=== PATIENT | male | born 1960 ===

== ENCOUNTER 2018-09-13 19:50 | Inpatient (IN) | payer MEDICAID ==
[~2018-09-13] VITALS: Ht 175.3 cm; Wt 71.4 kg
--- NOTE | ~2018-09-13 | HEMODYNAMI ---
PATIENT:KRISTOFER LANDON MEDICAL RECORD: [id number] : 60 LOCATION:[facility] [address] [facility]# [id number] ADMISSION DATE: 09/13/18 Generatedon:09/16/201815:55 Patient name: KRISTOFER LANDON Patient #: [id number] SSN: : 1960 Date of study: 09/16/2018 Page: Of Hemodynamic Procedure Report Patient Data Patient Demographics Procedure consent was obtained First Name: KRISTOFER Gender: Male Last Name: DIPESH : 1960 Patient #: [id number] Age: 58 year(s) Race: Unknown Additional ID: [id number] Contact details Address: [facility] [address] State: [place] City: [place] Zip code: [address] Past Medical History Allergies: No known allergies Admission Admission Data Admission Date: 09/13/2018 Admission Time: 20:33 Admit Source: Transfer Insurance Payor: Private acute care [facility] health insurance Room #: D.[address] [facility] #: [id number] Height (in.): 69 BSA: 1.86 (m2) Height (cm.): 175.26 BMI: 23.18 (kg/m2) Weight (lbs.): 157 Weight (kg.): 71.21 Lab Results Lab Result Date: 09/16/2018 Lab Result Time: 5:32 Biochemistry Name Units Result Min Max BUN mg/dl 15 --(--*-)-- 7 18 Creatinine mg/dl 0.5 -*(----)-- 0.6 1.3 CBC Name Units Result Min Max Hematocrit % 36.4 *-(----)-- 42 54 Hemoglobin g/dl 12.3 *-(----)-- 13.5 17.5 Procedure Procedure Types Cath Procedure Diagnostic Procedure [facility] PCI Procedure Coronary Stent Coronary Stent Initial Procedure Description Procedure Date Procedure Date: 09/16/2018 Procedure Start Time: 15:41 Procedure End Time: 15:54 Procedure Staff Name Function Harsha Johns MD Performing Physician Tyler Abbasi RT Monitor Oscar Castle RT Scrub Seng Haines RN Nurse Procedure Data Cath Procedure Fluoroscopy Diagnostic fluoroscopy Total fluoroscopy Time: 1.5 time: 1.5 min min Diagnostic fluoroscopy Total fluoroscopy dose: 102 dose: 102 mGy mGy Contrast Material Contrast Material Type Amount (ml) Isovue 300 37 Entry Location Entry Primary Successful Side Size Upsize Upsize Entry Closure Succes sful Closure Location (Fr) 1 (Fr) 2 (Fr) Remarks Device Remarks Femoral Left 6 Fr Exoseal artery Short Estimated blood loss: 10 ml Procedure Medications Medication Administration Route Dosage 0.9% NaCl I.V. 100 ml/hr Oxygen etCO2 Nasal cannula 2 l/min Heparin Flush Bag added to field 2 bags (1000units/500ml NS) Lidocaine 2% added to field 20 Versed I.V. 2 mg Fentanyl I.V. 100 mcg Heparin Bolus I.V. 4000 units Versed I.V. 2 mg Hemodynamics Rest BSA: 1.86 (m2) O2 Consumption: Estimated: 252.96 (ml/min) O2 Consumption indexed : Estimated:136 (ml/min/m) Pre Cath Intra NCS Post Cath Vital Signs Time Heart Resp SPO2 etCO2 NIBP (mmHg) Rhythm Pain Sedation Rate (ipm) (%) (mmHg) Status Level (bpm) 15:36:20 86 16 99 33.6 144/95(113) NSR 0 (11) 10(A) , No pain 15:40:30 82 14 98 36.6 124/88(99) NSR 0 (11) 10(A) , No pain 15:44:36 84 13 98 37.4 124/86(105) NSR 0 (11) 10(A) , No pain 15:48:44 83 12 98 37.4 121/81(94) NSR 0 (11) 10(A) , No pain 15:52:50 84 13 98 37.4 123/84(95) NSR 0 (11) 10(A) , No pain Medications Time Medication Route Dose Verified Delivered Reason Notes Effectiveness by by 15:34:46 0.9% NaCl I.V. 100 Seng Seng Per physician ml/hr Yancy Haines RN RN 15:34:55 Oxygen etCO2 2 Seng Seng for low 02 sats Nasal l/min Yancy Haines cannula RN RN 15:35:05 Heparin Flush added 2 Seng Seng used for Bag to bags Yancy Haines procedure (1000units/500ml field RN RN NS) 15:35:18 Lidocaine 2% added 20ml Seng Seng for local to vial Yancy Haines anesthetic field RN RN 15:41:55 Versed I.V. 2 mg Seng Seng for sedation Yancy Haines RN RN 15:42:03 Fentanyl I.V. 100 Seng Seng for sedation mcg Yancy Haines RN RN 15:42:16 Heparin Bolus I.V. 4000 Seng Seng for units Yancy Haines anticoagulation RN RN 15:42:42 Versed I.V. 2 mg Seng Seng for sedation Yancy Haines RN clerical specialist Log Time Note 15:10:11 Seng Haines RN sent for patient. Start room use. 15:16:42 Informed consent obtained and on chart 15:19:17 Insurance Payor : Private health insurance 15:19:44 Patient Weight : 157 lbs 15:19:48 Patient Height : 69 inches 15:20:21 Lab Result : BUN 15 mg/dl 15:20:21 Lab Result : Creatinine 0.5 mg/dl 15:20:21 Lab Result : Hematocrit 36.4 % 15:20:21 Lab Result : Hemoglobin 12.3 g/dl 15:20:51 PCI Cath Status : Elective 15:21:09 Procedure Status PCI. 15:21:17 Time tracking: Regular hours (M-F 7:00 - 5:00) 15:21:20 Plan of Care:Hemodynamics will remain stable., Cardiac rhythm will remain stable., Comfort level will be maintained., Respiratory function will remain adequate., Patient/ family verbilizes understanding of procedure., Procedure tolerated without complication., Recovers from procedure without complications.. 15:21:24 Patient received from Med II to CCL 1 Alert and oriented. Tansferred to table in Supine position. 15:21:29 Warm blankets applied, and jose hugger turned on for patient comfort. 15:21:30 Correct patient and procedure confirmed by team. 15:21:30 ECG and BP/O2 sat monitors applied to patient. 15:21:44 H&P Date Dictated: 09/15/2018 Within 30 days and on chart.. 15:21:46 Pre-procedure instructions explained to patient. 15:21:46 Pre-op teaching completed and patient verbalized understanding. 15:34:46 0.9% NaCl 100 ml/hr I.V. was administered by Sneg Haines RN; Per physician; 15:34:55 Oxygen 2 l/min etCO2 Nasal cannula was administered by Seng Haines RN; for low 02 sats; 15:35:05 Heparin Flush Bag (1000units/500ml NS) 2 bags added to field was administered by Seng Haines RN; used for procedure; 15:35:18 Lidocaine 2% 20ml vial added to field was administered by Seng Haines RN; for local anesthetic; 15:35:21 Vital chart was started 15:37:20 INFLATOR Merit BasixCompak (EH2007) opened to sterile field. 15:37:24 CHOICE PT Extra Support 182cm wire ([id number]) opened to sterile field. 15:37:27 SHEATH 6FR [place] (AAZ022) opened to sterile field. 15:37:31 EXOSEAL 6Fr (EX600) opened to sterile field. 15:37:42 Use device set CATH PACK 15:37:44 ACIST Syringe (27463) opened to sterile field. 15:37:44 ACIST Hand Control (63574) opened to sterile field. 15:37:47 ACIST Manifold (72207) opened to sterile field. 15:37:48 Medline Cath Pack ([id number]) opened to sterile field. 15:37:49 Bag Decanter (2002S) opened to sterile field. 15:37:49 EMERALD Guide Wire (502-205) opened to sterile field. 15:38:44 Patient allergic to No known allergies 15:39:03 ----Pre-sedation anethsthesia assessment.---- 15:39:06 Previous problem with sedation/anesthesia? No ? 15:39:15 Snore? Yes 15:39:16 Sleep apnea? No 15:39:18 Deviated septum? No 15:39:20 Opens mouth fully? Yes 15:39:22 Sticks out tongue? Yes 15:39:25 Airway obstruction? No ? 15:39:42 IV patent on arrival in right antecubital with 0.9% NaCl at [facility]. 15:39:44 Alarms reviewed by R. N. 15:39:45 Sharps counted by scrub and verified by R.N. 15:39:47 Physician arrived 15:39:47 --------ALL STOP TIME OUT------ 15:39:48 Final Timeout: patient, procedure, and site verified with staff and physician. All members of the team are in agreement. 15:39:52 Left groin site verified by team. 15:39:57 Fire Safety Assessment: A--An alcohol-based skin anteseptic being used preoperatively., C--Open oxygen or nitrous oxide is being used., D--An ESU, laser, or fiber-optic light is being used. 15:40:02 Physical assessment completed. ASA score P 2 - A patient with mild systemic disease as per Harsha Johns MD. 15:40:16 1) 90+ Normal kidney functon but urine findings or structural abnormalities or genetic trait point to kidney disease. 15:40:34 Maximum allowable contrast dose (3.7 X eGFR X 0.75)249 ml. 15:40:42 Sedation plan: IV Moderate Sedation Medication:Versed, Fentanyl 15:40:52 Procedure started. 15:40:52 Full Disclosure recording started 15:41:01 Local anesthetic to left femerol artery with Lidocaine 2% by Harsha oJhns MD.INITIAL ACCESS ONLY 15:41:11 A 6 Fr Short sheath was inserted into the Left Femoral artery 15:41:26 GUIDE 6FR AR 1.0 catheter (YS2TI15) opened to sterile field. 15:41:52 Pre PCI Site: [place] pRCA has 85% stenosis. 15:41:55 Versed 2 mg I.V. was administered by Seng Haines RN; for sedation; 15:41:58 6 Fr AR 1 guide catheter was inserted over the wire 15:42:03 Fentanyl 100 mcg I.V. was administered by Seng Haines RN; for sedation; 15:42:07 CHOICE wire advanced. 15:42:16 Heparin Bolus 4000 units I.V. was administered by Seng Haines RN; for anticoagulation; 15:42:42 Versed 2 mg I.V. was administered by Seng Haines RN; for sedation; 15:42:47 Place stent Inflation Number: 1 A COBRA RX 3.5 X 24 Stent was prepped and advanced across the Prox RCA 85. The stent was deployed at 13 ZAK for 0:10 (min:sec) 0. 15:43:21 Stent catheter was removed intact over wire. 15:43:22 Wire removed. 15:43:24 Guide catheter removed. 15:44:51 Sheath removed intact; hemostasis achieved with Exoseal to the Left Femoral artery. 15:44:54 Procedure ended.(Physican Out) 15:47:17 Fluoroscopy time 01.50 minutes. 15:47:22 Fluoroscopy dose: 102 mGy 15:47:22 Flurop Dose total: 102 15:47:27 Dose Area Product 4302 mGy/cm. 15:47:32 Contrast amount:Isovue 300 37ml. 15:47:36 Maximum allowable dose exceeded? No. 15:47:37 Sharps counted by scrub and verified by R.N. 15:53:23 Insertion/operative site no bleeding no hematoma. 15:53:33 Post-op/insertion site Left Femoral artery dressed using a 4 x 4 and Tegaderm. 15:53:44 Post left femerol artery:stable 15:53:53 Post-procedure physical assessment completed. ASA score P 2 - A patient with mild systemic disease as per Harsha Johns MD. 15:53:58 Post procedure rhythm: sinus rhythm 15:54:02 Estimated blood loss: 10 ml 15:54:04 Patient needs reinforcement of post procedure teaching. 15:54:06 Procedure and supply charges have been captured, reviewed, submitted and are correct. 15:54:07 Vital chart was stopped 15:54:08 See physician's report for complete and final results. 15:54:11 Report given to PCU. 15:54:15 Patient transfered to PCU with Bed. 15:54:17 Procedure ended. 15:54:17 Full Disclosure recording stopped 15:54:23 End room use (Document Last) Intervention Summary Intervention Notes Time ActionType Lesion and Equipment Action# Pressure Duration Attributes Used 15:42:47 Place stent Prox RCA COBRA RX 1 13 00:10 3.5 X 24 Stent Device Usage Item Name Manufacture Quantity Catalog Number Hospital Part Current Minimal Lot# / Charge Number Stock Stock Serial# Code INFLATOR Merit Merit 1 [id number] 738450 636863 132142 15 [employer] (BD2539) CHOICE PT [place] 1 [id number] 163125 216278 456299 5 Extra Support Scientific 182cm wire ([id number]) SHEATH 6FR Terumo 1 ZEN197 135192 821746 085209 40 [place] (NEL869) EXOSEAL 6Fr Cardinal 1 EX600 563936 599573 220046 10 (EX600) Health ACIST Syringe Acist 1 81837 768350 923299 456781 20 (42196) Medical Systems Inc ACIST Hand Acist 1 38671 340158 312789 766320 5 Control Medical (46269) Systems Inc ACIST Manifold Acist 1 51547 220445 301042 402820 5 (46094) Medical Systems Inc Medline Cath Medline 1 [id number] 062803 28518 039346 5 Pack ([id number]) Bag Decanter Microtek 1 2001S 524181 43046 626776 5 (2001S) Medical Inc. EMERALD Guide Cardinal 1 151-455 749396 597792 371348 5 Wire (131-725) Health GUIDE 6FR AR Medtronic 1 [id number] 519467 89868 037282 1 1.0 catheter (WP2RV86) COBRA RX 3.5 X Celonova 1 596-27-23067 411257 276163647 0272489 3 [id number] 24 stent Biosciences ([id number]) Signature Audit [place] Stage Time Signature Unsigned Intra-Procedure 09/16/2018 Tyler Abbasi 3:55:17 PM RT(R) (CV) Signatures Performing Physician : Signature : Harsha Johns MD Date : Time : Monitor : Tyler Abbasi RT Signature : Date : Time : Nurse : Seng Haines Signature : RN Date : Time : [place] [address] [place] [address]
--- NOTE | ~2018-09-13 | HEMODYNAMI ---
PATIENT:KRISTOFER LANDON MEDICAL RECORD: [id number] : 60 [address] [id number] ADMISSION DATE: 09/13/18 Generatedon:09/13/201820:42 Patient name: KRISOTFER LANDON Patient #: [id number] SSN: : 1960 Date of study: 09/13/2018 Page: Of Hemodynamic Procedure Report Patient Data Patient Demographics Procedure consent was obtained First Name: KRISTOFER Gender: Male Last Name: DIPESH : 1960 Patient #: [id number] Age: 58 year(s) Race: Unknown Additional ID: [id number] Contact details Address: [facility] [address] State: [place] City: [place] Zip code: [address] Admission Admission Data Admission Date: 09/13/2018 Admission Time: 20:33 Admit Source: Transfer acute care facility Room #: D.CV07 Procedure Procedure Types Cath Procedure Diagnostic Procedure [facility] w/Coronaries Sedation Charges Moderate Sedation up to 15 minutes PCI Procedure AMI/SVG/DELIVERY MGR PTCA or Stent AMI-BMS/KARLA Initial Procedure Description Procedure Date Procedure Date: 09/13/2018 Procedure Start Time: 20:20 Procedure End Time: 20:41 Procedure Staff Name Function Harsha Johns MD Performing Physician Caleb Fontanez RT Monitor Oscar Castle RT Scrub Seng Haines RN Nurse Procedure Data Cath Procedure Fluoroscopy Diagnostic fluoroscopy Total fluoroscopy Time: 2.5 time: 2.5 min min Diagnostic fluoroscopy Total fluoroscopy dose: 343 dose: 343 mGy mGy Contrast Material Contrast Material Type Amount (ml) Isovue 300 62 Entry Location Entry Primary Successful Side Size Upsize Upsize Entry Closure Succes sful Closure Location (Fr) 1 (Fr) 2 (Fr) Remarks Device Remarks Femoral Right 6 Fr Exoseal artery Short Estimated blood loss: 10 ml Diagnostic catheters Device Type Used For End Catheter Placement MULTIPACK JL 4.0 5Fr Procedure catheter MULTIPACK 3DRC 5Fr Procedure catheter MULTIPACK Pigtail 5 Fr Procedure catheter Procedure Complications No complications Procedure Medications Medication Administration Route Dosage 0.9% NaCl I.V. 100 ml/hr Oxygen etCO2 Nasal cannula 2 l/min Heparin Flush Bag added to field 2 bags (1000units/500ml NS) Lidocaine 2% added to field Versed I.V. 1 mg Fentanyl I.V. 50 mcg Heparin Bolus I.V. 5000 units Integrilin (Bolus I.V. 6.8 ml 2mg/ml) Integrilin (Bolus wasted 3.2 ml 2mg/ml) Versed I.V. 1 mg Fentanyl I.V. 50 mcg Hemodynamics Rest Heart Rate: 80 (bpm) Snapshots Pre Cath Intra NCS Post Cath Vital Signs Time Heart Resp SPO2 etCO2 NIBP (mmHg) Rhythm Pain Sedation Rate (ipm) (%) (mmHg) Status Level (bpm) 20:16:32 82 16 98 0 135/88(108) NSR 1 (11) 10(A) , Very mild 20:20:36 84 17 99 0 117/85(96) NSR 1 (11) 10(A) , Very mild 20:24:42 81 11 98 0 125/85(107) NSR 0 (11) 10(A) , No pain 20:28:52 78 14 97 0 116/79(98) NSR 0 (11) 10(A) , No pain 20:32:56 80 23 98 0 116/84(101) NSR 0 (11) 10(A) , No pain 20:37:01 79 15 98 0 116/77(98) NSR 0 (11) 10(A) , No pain Medications Time Medication Route Dose Verified Delivered Reason Notes Effectiveness by by 20:18:59 0.9% NaCl I.V. 100 Seng Seng Per physician ml/hr Yancy Haines RN RN 20:19:10 Oxygen etCO2 2 Seng Seng for low 02 sats Nasal l/min Yancy Haines cannula RN RN 20:19:19 Heparin Flush added 2 Seng Seng used for Bag to bags Yancy Haines procedure (1000units/500ml field FABRIZIO DINH NS) 20:19:32 Lidocaine 2% added Seng Seng for local to Yancy Haines anesthetic field FABRIZIO RN 20:20:01 Versed I.V. 1 mg Seng Seng for sedation Yancy Haines RN RN 20:20:12 Fentanyl I.V. 50 Seng Seng for sedation mcg Yancy Haines RN RN 20:25:28 Heparin Bolus I.V. 5000 Seng Seng for units Yancy Haines anticoagulation RN RN 20:25:45 Integrilin I.V. 6.8 Seng Seng for (Bolus 2mg/ml) ml Yancy Haines antiplatelet RN RN therapy 20:25:56 Integrilin wasted 3.2 Seng Seng to sharp's (Bolus 2mg/ml) ml Yancy Haines RN RN 20:26:51 Versed I.V. 1 mg Seng Seng for sedation Yancy Haines RN RN 20:26:58 Fentanyl I.V. 50 Seng Seng for sedation mcg Yancy Haines RN plastic battery assembler Log Time Note 19:57:21 Informed consent obtained and on chart 19:57:27 Admit Source: Transfer acute care facility 19:57:45 Procedure Status Emergent Heart Cath (AMI). 19:57:48 Seng Haines RN sent for patient. Start room use. 19:57:50 Time tracking: Call back (After hours or weekends) 19:57:54 Plan of Care:Hemodynamics will remain stable., Cardiac rhythm will remain stable., Comfort level will be maintained., Respiratory function will remain adequate., Patient/ family verbilizes understanding of procedure., Procedure tolerated without complication., Recovers from procedure without complications.. 20:05:11 Patient arrives emergently. 20:05:22 Patient received from ED to CCL 1 Alert and oriented. Tansferred to table in Supine position. 20:05:23 Warm blankets applied, and jose hugger turned on for patient comfort. 20:05:23 Correct patient and procedure confirmed by team. 20:05:24 ECG and BP/O2 sat monitors applied to patient. 20:15:30 Vital chart was started 20:15:42 Baseline sample Acquired. 20:15:46 Rhythm: sinus rhythm , w/ ST elevation 20:15:59 Full Disclosure recording started 20:16:06 H&P Date Dictated: 09/13/2018 Emergent; H&P N/A. 20:16:07 Pre-procedure instructions explained to patient. 20:16:07 Pre-op teaching completed and patient verbalized understanding. 20:16:09 Family in patients room. 20:16:11 Patient NPO since Midnight. 20:16:13 Is the patient allergic to Iodine/contrast media? No. 20:16:14 Is patient on blood thinner?No 20:16:16 Patient diabetic? Yes. 20:16:17 If diabetic: On Metformin? Yes 20:16:20 If on Metformin: Last Dose? 09/12/2018 20:16:22 Previous problem with sedation/anesthesia? No ? 20:16:23 Snore? Yes 20:16:24 Sleep apnea? No 20:16:25 Deviated septum? No 20:16:25 Opens mouth fully? Yes 20:16:26 Sticks out tongue? Yes 20:16:28 Airway obstruction? No ? 20:16:31 Dentures? No ? 20:16:33 Pre procedure: right dorsailis pedis pulse 1+ Palpable, but thready & weak; easily obliterated 20:16:52 Patient pain scale 2/10 Physician observed.. 20:17:35 IV patent on arrival in right forearm with 0.9% NaCl at [facility]. 20:17:36 Lab results completed and on chart. 20:17:39 Right groin area was prepped with chlora-prep and draped in sterile fashion 20:17:40 Alarms reviewed by R. N. 20:17:40 Sharps counted by scrub and verified by R.N. 20:17:41 --------ALL STOP TIME OUT------ 20:17:43 Final Timeout: patient, procedure, and site verified with staff and physician. All members of the team are in agreement. 20:17:44 Right groin site verified by team. 20:18:40 Fire Safety Assessment: A--An alcohol-based skin anteseptic being used preoperatively., C--Open oxygen or nitrous oxide is being used., D--An ESU, laser, or fiber-optic light is being used. 20:18:44 Physical assessment completed. ASA score P 3 - A patient with severe systemic disease as per Harsha Johns MD. 20:18:46 Sedation plan: IV Moderate Sedation Medication:Versed, Fentanyl 20:18:59 0.9% NaCl 100 ml/hr I.V. was administered by Seng Haines RN; Per physician; 20:19:02 Use device set Femoral Dx 20:19:07 Tegaderm 4 x 4 (1626W) opened to sterile field. 20:19:07 ACIST Manifold (26390) opened to sterile field. 20:19:08 ACIST Hand Control (76704) opened to sterile field. 20:19:09 ACIST Syringe (20632) opened to sterile field. 20:19:09 Bag Decanter (2002S) opened to sterile field. 20:19:10 Oxygen 2 l/min etCO2 Nasal cannula was administered by Seng Haines RN; for low 02 sats; 20:19:10 Medline Cath Pack ([id number]) opened to sterile field. 20:19:19 Heparin Flush Bag (1000units/500ml NS) 2 bags added to field was administered by Seng Haines RN; used for procedure; 20:19:32 Lidocaine 2% added to field was administered by Seng Haines RN; for local anesthetic; 20:20:01 Versed 1 mg I.V. was administered by Seng Haines RN; for sedation; 20:20:08 BRANDONALD Guide Wire (700-574) opened to sterile field. 20:20:09 DIAGNOSTIC Multipack 5Fr catheter set (FH8698) opened to sterile field. 20:20:12 Fentanyl 50 mcg I.V. was administered by Seng Haines RN; for sedation; 20:20:23 Use device set TAUTH PCI 20:20:25 SHEATH 6FR Goodfield (ECX345) opened to sterile field. 20:20:33 Procedure started. 20:20:36 Local anesthetic to right femoral artery with Lidocaine 2% by Harsha Johns MD.INITIAL ACCESS ONLY 20:21:02 A 6 Fr Short sheath was inserted into the Right Femoral artery 20:21:09 A MULTIPACK JL 4.0 5Fr catheter was advanced over the wire and used for Procedure. 20:21:20 LCA angiography performed. 20:21:27 INFLATOR Merit BasixCompak (PS2101) opened to sterile field. 20:21:38 A MULTIPACK 3DRC 5Fr catheter was advanced over the wire and used for Procedure. 20:21:52 CHOICE PT Extra Support 182cm wire ([id number]) opened to sterile field. 20:22:32 RCA angiography performed. 20:22:53 Catheter removed. 20:22:59 A MULTIPACK Pigtail 5 Fr catheter was advanced over the wire and used for Procedure. 20:23:15 LV angiography performed. 20:23:18 LV gram done using BRAUN 20::23 EF : 55 % 20::28 Injector settings: Ml/sec: 10, Volume: 20, 20:23:29 Catheter removed. 20:23:31 GUIDE 6FR XBLAD 4.0 catheter ([id number]) opened to sterile field. 20:24:42 6 Fr XBLAD 4 guide catheter was inserted over the wire 20:24:52 Pre PCI Site: [place] pLAD has 100% stenosis. 20:24:57 CPTXS wire advanced. 20:25:00 Wire advanced across lesion. 20:25:28 Heparin Bolus 5000 units I.V. was administered by Seng Haines RN; for anticoagulation; 20:25:37 Inflate balloon Inflation number: 1 A EUPHORA 2.5 x 15 Balloon ([id number]) was prepped and advanced across the Prox LAD 100, then inflated to 13 ZAK for 0:10 (min:sec) . 20:25:45 Integrilin (Bolus 2mg/ml) 6.8 ml I.V. was administered by Seng Haines RN; for antiplatelet therapy; 20:25:56 Integrilin (Bolus 2mg/ml) 3.2 ml wasted was administered by Seng Haines RN; to sharp's; 20:26:51 Versed 1 mg I.V. was administered by Seng Haines RN; for sedation; 20:26:58 Fentanyl 50 mcg I.V. was administered by Seng Haines RN; for sedation; 20:27:35 Balloon removed over the wire. 20::43 Place stent Inflation Number: 2 A COBRA RX 3.0 X 24 Stent was prepped and advanced across the Prox LAD 100. The stent was deployed at 13 ZAK for 0:10 (min:sec) 0. 20:27:47 EXOSEAL 6Fr (EX600) opened to sterile field. 20:28:02 Sheath removed intact; hemostasis achieved with Exoseal to the Right Femoral artery. 20:28:08 Procedure ended.(Physican Out) 20:30:38 Fluoroscopy time 02.50 minutes. :: Fluoroscopy dose: 343 mGy ::43 Flurop Dose total: 343 20:30:48 Dose Area Product 84219 mGy/cm. 20:30:54 Contrast amount:Isovue 300 62ml. 20:30:58 Maximum allowable dose exceeded? No. 20:31:00 Sharps counted by scrub and verified by R.N. 20:31:02 Insertion/operative site no bleeding no hematoma. 20:31:04 Post-op/insertion site Right Femoral artery dressed using a 4 x 4 and Tegaderm. 20:31:07 Post Procedure Pulses reassessed and unchanged 20:31:09 Post-procedure physical assessment completed. ASA score P 2 - A patient with mild systemic disease as per Harsha Johns MD. 20:31:10 Post procedure rhythm: unchanged. 20:31:12 Estimated blood loss: 10 ml 20:32:22 Post procedure instruction explained to patient.Patient verbalizes understanding. 20:32:22 Patient needs reinforcement of post procedure teaching. 20:32:44 Procedure type changed to Cath procedure, Diagnostic procedure, LHC, C w/Coronaries, Sedation Charges, Moderate Sedation up to 15 minutes, PCI procedure, AMI/SVG/DELIVERY MGR PTCA or Stent, AMI-BMS/KARLA Initial 20:34:23 Procedure and supply charges have been captured, reviewed, submitted and are correct. 20:34:25 Procedure Complication : No complications 20:37:43 Vital chart was stopped 20:37:43 See physician's report for complete and final results. 20:41:17 Report given to CVICU. 20:41:21 Patient transfered to CVICU with Bed. 20:41:23 Procedure ended. 20:41:23 Full Disclosure recording stopped 20::34 End room use (Document Last) Intervention Summary Intervention Notes Time ActionType Lesion and Equipment Action# Pressure Duration Attributes Used 20:25:37 Inflate Prox LAD EUPHORA 1 13 00:10 balloon 2.5 x 15 Balloon ([id number]) 20:27:43 Place stent Prox LAD COBRA RX 2 13 00:10 3.0 X 24 Stent Device Usage Item Name Manufacture Quantity Catalog Number Hospital Part Current Minimal Lot# / Charge Number Stock Stock Serial# Code Tegaderm 4 x 4 3M 1 1626W [id number] [id number] [id number] 5 (1626W) ACIST Manifold Acist 1 36599 057902 613214 110604 5 (03382) Medical Systems Inc ACIST Hand Acist 1 91630 018050 453202 106274 5 Control Medical (41200) Systems Inc ACIST Syringe Acist 1 18457 178276 588526 831829 20 (15631) Medical Systems Inc Bag Decanter Microtek 1 2001S 322755 23135 884707 5 (2001S) Medical Inc. Medline Cath Medline 1 [id number] 491318 71271 340218 5 Pack ([id number]) EMERALD Guide Cardinal 1 502455 099296 196865 122704 5 Wire (502455) Health DIAGNOSTIC Cardinal 1 NG1646 789670 79050 149521 30 Multipack 5Fr Health catheter set (KF3718) SHEATH 6FR Terumo 1 NHX628 375372 970881 141674 40 [place]field (XHC093) MULTIPACK JL Cardinal 1 935200 5 4.0 5Fr Health catheter INFLATOR Merit Merit 1 JR7950 986109 987903 476785 15 SharedReviews (DD7266) MULTIPACK 3DRC Cardinal 1 465591 5 5Fr catheter Health CHOICE PT Reklaw 1 [id number] 516439 202214 638030 5 Extra Support Scientific 182cm wire ([id number]) MULTIPACK Cardinal 1 679641 5 Pigtail 5 Fr Health catheter GUIDE 6FR Cardinal 1 [id number] 299823 258737 152401 3 XBLAD 4.0 Health catheter ([id number]) EUPHORA 2.5 x Medtronic 1 [id number] 485990 882197 115058 5 [id number] 15 Balloon ([id number]) COBRA RX 3.0 X Celonova 1 577328 [id number] 426518 1 [id number] 24 stent Biosciences () EXOSEAL 6Fr Cardinal 1 EX600 961951 964612 021119 10 (EX600) Health Signature Audit [place] Stage Time Signature Unsigned Intra-Procedure 09/13/2018 Caleb Fontanez 8:42:50 PM RT(R) Signatures Performing Physician : Signature : Harsha Johns MD Date : Time : Monitor : Caleb [place] RT Signature : Date : Time : Nurse : Seng Lorigan Signature : RN Date : Time : [address] [place] [address]
[2018-09-13] MEDS ORDERED: GLUCOPHAGE500 MG PO (19:54)
[2018-09-13] MEDS ORDERED: BAYER CHEWABLE81 MG PO (19:54)
--- NOTE | 2018-09-13 20:00 | NUR ---
ASSESSMENT DONE SEE FLOW SHEET VSS. NO SIGNS OF ACUTE DISTRESS NOTED. ICU MONITORS IN PLACE ALARMS SET AND VERIFIED. WILL CONITNUE TO MONITOR.
--- NOTE | 2018-09-13 20:00 | NUR ---
METALLURGICAL ENGINEER CONSENT FORMS SIGNED.
--- NOTE | 2018-09-13 20:02 | NUR ---
PT TRANSPORTED TO LOG HAUL OPERATOR VIA SURVIVAL FLIGHT STRETCHER WITH HEPARIN 1300 UNITS/HR, NITRO DRIP 35MCG/HR STARTED BY SURVIVAL FLIGHT PERMASTONE INSTALLER STILL INFUSING.
--- NOTE | 2018-09-13 20:58 | NUR ---
RECEIVED PT TO ROOM CV07, CVICU MONITORS ESTABLISHED, VSS, HR SR ON CM, PPP, RT GROIN SITE CDI AND SOFT TO PALP. PT ABLE TO ANSWER QUESTIONS APPROPRIATELY, UNDERSTANDS TO KEEP RT LEG STRAIGHT. DENIES ANY NEEDS AT THIS TIME.
[2018-09-13 21:07] VITALS: BP 105/68; BMI 23.6
--- NOTE | 2018-09-13 21:30 | NUR ---
DR MILLER CONTACTED REGARDING DIET, ORDER RECEIVED. PT NOTIFIED.
[2018-09-13 23:00] VITALS: BP 104/69
--- NOTE | 2018-09-13 23:00 | NUR ---
REASSESSMENT DONE SEE FLOW SHEET VSS NO SIGNS OF ACUTE DISTRESS NOTED.
[2018-09-14] VITALS (13 sets, daily range): BP systolic 89–132; BP diastolic 55–84; BMI 20.8
--- NOTE | 2018-09-14 01:00 | NUR ---
WATER PROVIDED PER PT REQUEST.
--- NOTE | 2018-09-14 03:00 | NUR ---
REASSESSMENT DONE SEE FLOW SHEET VSS
--- NOTE | 2018-09-14 05:03 | NUR ---
IO COLLECTED DAILY WEIGHT COLLECTED. VSS.
[2018-09-14 05:39] LABS: BASOPHILS 0.2 % (0-2); HEMATOCRIT 39.4 % (42.0-54.0); HEMOGLOBIN 13.6 g/dL (13.5-17.5); IMMATURE GRANULOCYTES 0.2 % (0-5); LYMPHOCYTES 30.4 % (15-50); MCH 28.6 pg (26.0-34.0); MCHC 34.5 g/dL (31.0-37.0); MCV 82.8 fL (80.0-100.0); MEAN PLATELET VOLUME 9.7 fL (7.4-10.4); MONOCYTES 9.6 % (2-11); NEUTROPHILS 58.6 % (40-80); PLATELET COUNT 289 10x3/uL (130-400); RBC 4.76 10x6/uL (4.20-6.10); RDW 15.8 % (11.5-14.5); WBC 10.7 10x3/uL (4.8-10.8)
[2018-09-14 06:07] LABS: ALBUMIN 2.5 g/dL (3.4-5.0); ALKALINE PHOSPHATASE 103 U/L (46-116); ALT (SGPT) 56 U/L (10-68); BILIRUBIN - TOTAL 0.22 mg/dL (0.2-1.3); CALC OSMOLALITY 287 mosm/kg (275-300); CALCIUM 8.9 mg/dL (8.5-10.1); CARBON DIOXIDE 25.4 mmol/L (21.0-32.0); CHLORIDE - SERUM 104 mmol/L (98-107); CREATININE - SERUM 0.7 mg/dL (0.6-1.3); GLUCOSE 224 mg/dL (74-106); POTASSIUM - SERUM 3.7 mmol/L (3.5-5.1); PROTEIN - SERUM 6.6 g/dL (6.4-8.2); SODIUM 139 mmol/L (136-145); UREA NITROGEN 21 mg/dL (7-18); eGFR NON AFRICAN AMERICAN > 90 mL/min (90-120)
--- NOTE | 2018-09-14 10:35 | HP ---
PATIENT: KRISTOFER CISNEROS MEDICAL RECORD: [id number] ACCOUNT: [id number] LOCATION:[facility] EMELI08 : 60 ADMISSION DATE: 09/13/18 PCP: No PCP HISTORY AND PHYSICAL EXAMINATION DIAGNOSES: 1. Acute anterior myocardial infarction. 2. Coronary artery disease. 3. Noninsulin-dependent diabetes. 4. Chest pain. 5. Dyspnea on exertion and shortness of breath. HISTORY OF PRESENT ILLNESS: Mr. Cisneros began having shortness of breath and chest pressure, chest pain yesterday. He continued to stay at home until late today, went to [facility], was found to have an acute anterior myocardial infarction. He is loaded with Plavix and aspirin and sent here on a helicopter. He continues to have ST elevation, continued to have chest pressure and shortness of breath, his heart rates in the 80s, systolic blood pressures in the 130s. PHYSICAL EXAMINATION: GENERAL APPEARANCE: Well-nourished, well-developed, appears stated age. Level of distress, comfortable. PSYCHIATRIC: Mental status, alert, normal affect. Orientation, oriented to time, place and person. EYES: Lids and conjunctiva, noninjected. No discharge, no pallor. ENT: Lips, teeth, gums, normal dentition. Oropharynx, no cyanosis, no pallor. NECK: Carotid arteries, bilateral normal upstroke, no bruits, no thrills. JUGULAR VEINS: No jugular venous pressure or distention. CERVICAL LYMPH NODES: Nontender, nonenlarged. THYROID: Not enlarged. Nontender. No nodules. LUNGS: Respiratory effort, unlabored. CHEST: Normal curvature. No thoracic deformity. No chest wall tenderness. Percussion, resonant. Auscultation, clear. No wheezes, no rales, no rhonchi. CARDIOVASCULAR: Precordial exam, nondisplaced. No heaves or pericardial thrills. Rate and rhythm, regular. Heart sounds, normal S1, normal S2. No S3, no gallop, no rub. Systolic murmur, not heard. Diastolic murmur, not heard. EXTREMITIES: No cyanosis, no edema. Peripheral pulses, full and equal in all extremities, except as noted. No bruits appreciated. ABDOMEN: Soft, nondistended. Normal aorta. No bruit. Nontender. No masses. Liver, nontender, no hepatomegaly. Spleen, nontender, no splenomegaly. MUSCULOSKELETAL: No joint tenderness. No joint swelling. No erythema. NEUROLOGICAL: Normal gait, normal strength, normal tone. SKIN: Warm and dry. OVERALL IMPRESSION: Acute anterior myocardial infarction. We will proceed with emergent cardiac catheterization. TRANSINT:[id number] Voice Confirmation ID: [id number] DOCUMENT ID: [id number] HISTORY AND PHYSICAL [id number] KRISTOFER CISNEROS JEFFREY MD at 1035 CC: [id number] DICTATION DATE: 09/13/182015 FISHING TOOL OPERATOR: 09/13/18 2142 ADM IN [facility] [address] [id number]
--- NOTE | 2018-09-14 10:35 | OP ---
PATIENT NAME: KRISTOFER LANDON MEDICAL RECORD: [id number] :60 LOCATION:Y[facility]Y SAINZ08 ADMISSION DATE:09/13/18 SURGEON: VIJAY MILLER MD DATE OF OPERATION: 09/13/2018 DATE OF SERVICE: 09/13/2018 PROCEDURES: 1. PTCA stent LAD. 2. Left heart catheterization. 3. Selective coronary angiography. 4. Left ventriculogram. INDICATION: Acute anterior myocardial infarction. PROCEDURE IN DETAIL: After informed consent was obtained and after a detailed description of risks, benefits as well as alternative therapies, the patient elected to proceed with angiogram and angioplasty. The right femoral area was prepped and draped in normal sterile fashion. Right femoral artery was cannulated via modified Seldinger technique with placement of 6-Fijian sheath. All catheters exchanged through this sheath. FINDINGS: Left ventriculogram was performed in standard 30-degree BRAUN view, reveals good cardiac wall motion throughout all segments including the anterior wall. Overall ejection fraction preserved at 55%. SELECTIVE CORONARY ANGIOGRAPHY: 1. Left main showed no significant angiographic disease. 2. Left anterior descending is totally occluded with KIMANI 0 flow. 3. Left circumflex has moderate irregularities, but no flow-limiting stenosis. 4. Right coronary has 85-90% stenosis in the proximal vessel. PTCA STENT OF THE LAD: The stent used was 3.0 x 24 mm Cobra. Result was 0% residual stenosis with sikh of KIMANI-3 flow. IMPRESSION: Successful percutaneous transluminal coronary angioplasty stent of the left anterior descending going from 100% initial stenosis KIMANI 0 flow to 0% residual stenosis, KIMANI 3 flow. PLAN: For PTCA stent of the RCA in the near future. TRANSINT:[id number] Voice Confirmation ID: [id number] DOCUMENT ID: [id number] VIJAY MILLER MD at 1035 CC: [id number] DICTATION DATE: 09/13/182030 STOREPERSON: 09/14/18 0021 [place] [address]
--- NOTE | 2018-09-14 13:48 | NUR ---
1035: DR. MILLER HERE. TRANSFER ORDERS REC'D. 1350: REPORT CALLED TO RECEIVING NURSE. 1410: TRANSFERRED TO ROOM 2118. RECEIVING NURSE AT BEDSIDE.
--- NOTE | 2018-09-14 14:06 | NUR ---
TRANSFERED FROM BY W/Abdulaziz BURNETT TO ROOM. CALL LIGHT IN REACH. WILL CONT. PLAN OF CARE.
--- NOTE | 2018-09-14 19:06 | NUR ---
INITIAL ROUNDS COMPLETED. PT DENIES ANY DISCOMFORT. SR UP X2, CALL LIGHT WITHIN REACH.
--- NOTE | 2018-09-14 19:41 | NUR ---
ASSESSMENT COMPLETED AT 1935HRS. VSS. SR PER CM HR 78. ALERT AND ORIENTED TO PERSON, PLACE AND TIME. CRUZ. R GROIN CLEAN,DRY AND INTACT WITHOUT SWELLING OR BRUSING. PALPABLE PERIPHERAL PULSES. LUNGS DIMINISHED IN BASES BILAT. DENIES ANY DISCOMFORT. SR UP X2, CALL LIGHT WITHIN REACH.
--- NOTE | 2018-09-14 21:25 | NUR ---
FSBS 233. 4 UNITS REG INSULIN GIVEN SUB-Q TO UPPER R ARM. PT URINATED ON FLOOR AND SELF. FLOOR CLEANED. SOCKS REMOVED FORM PT. FEET BLACK. SOILED GOWN REMOVED AND BROWN PATCHES NOTED TO CHESTA ND UPPER ARMS. PT STATES HAS NOT HAD A BATH SINCE ADMISSION. BEDBATH IN PROGRESS AT THIS TIME.
--- NOTE | 2018-09-14 23:06 | NUR ---
PT RESTING WITH EYES CLOSED. RESP EVEN AND REGULAR. SR UP X2, CALL LIGHT WITHIN REACH.
[2018-09-15] VITALS: BP 138/75
--- NOTE | 2018-09-15 00:44 | NUR ---
PT RESTING WITH EYES CLOSED ON L SIDE. RESP EVEN AND REGULAR. SR UP X2, CALL LIGHT WITHIN REACH.
--- NOTE | 2018-09-15 02:15 | NUR ---
PT RESTING WITH EYES CLOSED. RESP EVEN AND REGULAR. SR UP X2, CALL LIGHT WITHIN REACH.
[2018-09-15 04:00] VITALS: BP 139/84
--- NOTE | 2018-09-15 04:51 | NUR ---
PT RESTING WITH EYES CLOSED. RESP EVEN AND REGULAR. SR UP X2, CALL LIGHT WITHIN REACH.
--- NOTE | 2018-09-15 05:47 | NUR ---
VSS THROUGHOUT NIGHT. SR PER CM. PT RESTED WELL DURING SHIFT. NEEDS MET;WILL CONTINUE TO MONITOR.
[2018-09-15 08:32] VITALS: BP 119/81
--- NOTE | 2018-09-15 09:10 | NUR ---
HAS URINATED ON FLOOR. ASSISTED TO CHAIR. GOWN AND LINENS CHANGED.ZEV BED ALARM IN PLACE FOR FALL PREVENTION. WILL CONT. PLAN OF CARE.
--- NOTE | 2018-09-15 13:03 | NUR ---
CONSENTS SIGNED FOR [facility]. WILL CONT. PLAN OF CARE.
[2018-09-15 13:05] VITALS: BP 133/93
[2018-09-15 13:32] VITALS: Ht 175.3 cm; Wt 71.4 kg
--- NOTE | 2018-09-15 14:19 | NUR ---
URINE SPECIMEN COLLECTED AND TAKEN TO LAB. WILL MONITOR.
[2018-09-15 15:09] LABS: APPEARANCE CLEAR (CLEAR); BILIRUBIN NEGATIVE (NEGATIVE); COLOR DK YELLOW (YELLOW); GLUCOSE 1000 mg/dL (NEGATIVE); KETONE NEGATIVE (NEGATIVE); NITRITE NEGATIVE (NEGATIVE); PROTEIN NEGATIVE (NEGATIVE); UROBILINOGEN NORMAL (NORMAL)
[2018-09-15 15:21] LABS: UDS - AMPHET NEGATIVE QUAL (NEGATIVE); UDS - BARB NEGATIVE QUAL (NEGATIVE); UDS - BENZO NEGATIVE QUAL (NEGATIVE); UDS - COCAINE NEGATIVE QUAL (NEGATIVE); UDS - OPIATE NEGATIVE QUAL (NEGATIVE); UDS - PCP NEGATIVE QUAL (NEGATIVE); UDS - THC NEGATIVE QUAL (NEGATIVE)
[2018-09-15 16:19] VITALS: BP 130/70
[2018-09-15 20:00] VITALS: BP 127/79
--- NOTE | 2018-09-15 22:01 | NUR ---
INITIAL ROUNDS COMPLETED AT 1910 HRS. PT RESTING WITH EYES CLOSED. RESP EVEN AND REGULAR. ASSESSMENT COMPLETED AT 1999 HRS. VSS. SR PER CM HR 81. PT ALERT AND ORIENTED TO PERSON, PLACE AND TIME. PT SLOW TO RESPOND. IV X2 TO RFA SL. LUNGS DIMINISHED IN BASES BILAT. CRUZ. PM FSBS 237. 12 UNITS REG INSULIN GIVEN SUB-Q TO UPPER L ARM. REPOSITIONED IN BED FOR COMFORT. PT CURRENTLY RESTING WITH EYES CLOSED. RESP EVEN AND REGULAR. SR UP X2,CALL LIGHT WITHIN REACH.
[2018-09-16] VITALS: BP 142/91
--- NOTE | 2018-09-16 00:38 | NUR ---
PT RESTING WITH EYES CLOSED. RESP EVEN AND REGULAR. SR UP X2, CALL LIGHT WITHIN REACH.
--- NOTE | 2018-09-16 02:07 | NUR ---
PT RESTING WITH EYES CLOSED. RESP EVEN AND REGULAR. SR UP X2, CALL LIGHT WITHIN REACH AND BED ALARM ON.
[2018-09-16 04:00] VITALS: BP 140/83
--- NOTE | 2018-09-16 04:33 | NUR ---
PT RESTING WITH EYES CLOSED. RESP EVEN AND REGULAR. SR UP X2, CALL LIGHT WITHIN REACH.
--- NOTE | 2018-09-16 05:53 | NUR ---
VSS THROUGHOUT NIGHT. SR PER CM. PT DENIED ANY DISCOMFORT. HIBICLENS WIPES GIVEN AND EXPLAINED TO PT. STATED UNDERSTANDING. NPO FOR [facility] TODAY. NEEDS MET; WILL CONTINUE TO MONITOR.
[2018-09-16 06:40] LABS: BASOPHILS 0.4 % (0-2); EOSINOPHILS 2.3 % (0-7); HEMATOCRIT 36.4 % (42.0-54.0); HEMOGLOBIN 12.3 g/dL (13.5-17.5); IMMATURE GRANULOCYTES 0.2 % (0-5); LYMPHOCYTES 34.5 % (15-50); MCHC 33.8 g/dL (31.0-37.0); MCV 82.7 fL (80.0-100.0); MONOCYTES 11.2 % (2-11); NEUTROPHILS 51.4 % (40-80); PLATELET COUNT 287 10x3/uL (130-400); RDW 15.8 % (11.5-14.5); WBC 8.9 10x3/uL (4.8-10.8)
[2018-09-16 06:53] LABS: CALCIUM 8.5 mg/dL (8.5-10.1); CARBON DIOXIDE 27.6 mmol/L (21.0-32.0); CHLORIDE - SERUM 103 mmol/L (98-107); CREATININE - SERUM 0.5 mg/dL (0.6-1.3); SODIUM 139 mmol/L (136-145); UREA NITROGEN 15 mg/dL (7-18); eGFR NON AFRICAN AMERICAN > 90 mL/min (90-120)
[2018-09-16 07:14] LABS: CALC OSMOLALITY 279 mosm/kg (275-300); GLUCOSE 108 mg/dL (74-106)
[2018-09-16 07:16] LABS: POTASSIUM - SERUM 2.8 mmol/L (3.5-5.1)
--- NOTE | 2018-09-16 09:18 | NUR ---
AWAKE AND ALERT. TELEMERTY SHOWS SR 77. LUNGS DIMISHED. RIGHT FA SL TIMES 2.DENIES ANY NEEDS. UP WITH ASSIST. POTASSIUM 2.8. TREATED AND WILL RECHECK. AWAITING CATH
[2018-09-16 09:42] VITALS: BP 142/84
--- NOTE | 2018-09-16 14:25 | NUR ---
LYING QUIETLY. V/S STABLE. TELEMERTY SHOWS SR. AWAITING CATH
--- NOTE | 2018-09-16 16:30 | NUR ---
PT BACK FROM MONITORING COORDINATOR. TELEMERTY SHOWS SR. LEFT GROIN SOFT WITH DRSG DRY AND INTACT. PPP. DENIES ANY NEEDS. RIGHT FA WITH NS AT 100. WILL MONITOR
[2018-09-16 20:00] VITALS: BP 128/85
--- NOTE | 2018-09-16 21:33 | NUR ---
TOOK PATIENT BLOOD SUGAR THE FIRST RESULT WAS 314. PATIENT DID NOT AGREE WITH THE RESULT HAD ME TAKE IT A SECOND TIME . SECOND RESULT WAS 398 DRAWN ON THE SAME HAND SAME FINGER. PATIENT STATED THAT THERE WAS SOMETHING WRONG WITH THE MACHINE. I WENT AND GOT SECOND MACHINE. PATIENT WANTED BLOOD SUGAR TAKEN ON THE SAME HAD WITH THE SAME FINGER. THIRD RESULT WAS 340. I ASKED PATIENT IF HE AGREED TO TAKING HIS INSULIN. HE STATED YES. EXPLAINED THAT IT WAS 20 UNITS. PATIENT AGREED TO TAKE THE 20 UNITS.
[2018-09-17] VITALS: BP 159/87
[2018-09-17 04:00] VITALS: BP 156/94
[2018-09-17 07:58] LABS: CALCIUM 8.4 mg/dL (8.5-10.1); CARBON DIOXIDE 24.9 mmol/L (21.0-32.0); CHLORIDE - SERUM 103 mmol/L (98-107); CREATININE - SERUM 0.6 mg/dL (0.6-1.3); SODIUM 137 mmol/L (136-145); UREA NITROGEN 18 mg/dL (7-18); eGFR NON AFRICAN AMERICAN > 90 mL/min (90-120)
[2018-09-17 07:59] LABS: CALC OSMOLALITY 280 mosm/kg (275-300); GLUCOSE 196 mg/dL (74-106); POTASSIUM - SERUM 3.8 mmol/L (3.5-5.1)
[2018-09-17] MEDS ORDERED: TOPROL XL50 MG PO (08:57)
[2018-09-17] MEDS ORDERED: PRAVACHOL40 MG PO (08:57)
[2018-09-17] MEDS ORDERED: PLAVIX75 MG PO (08:58)
[2018-09-17 09:02] VITALS: BP 144/83
--- NOTE | 2018-09-17 09:53 | DS ---
PATIENT:KRISTOFER CISNEROS :60 MEDICAL RECORD: [id number] DISCHARGE SUMMARY ADMISSION DATE: 09/13/18 DISCHARGE DATE: DATE OF DISCHARGE: 09/17/2018. DISCHARGE DIAGNOSES: 1. Acute anterior myocardial infarction. 2. Percutaneous transluminal coronary angioplasty stent left anterior descending. 3. Percutaneous transluminal coronary angioplasty stent right coronary artery. 4. Coronary artery disease. 5. Chronic obstructive pulmonary disease. 6. Smoking. 7. Hypertension. 8. Hyperlipidemia. HOSPITAL COURSE: Mr. Cisneros presents with an acute anterior myocardial infarction, underwent PTCA stent of the LAD. He as well had critical disease of the RCA, underwent successful PTCA stent of the RCA in a staged fashion. He was discharged home with the addition of aspirin, Plavix, Pravachol, Lopressor to his medical regimen. He will follow up with [facility] in 1 month. 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
--- NOTE | 2018-09-17 09:53 | EC ---
PATIENT:KRISTOFER LANDON DATE OF SERVICE: 09/13/18 SEX: M MEDICAL RECORD: [id number] DATE OF : 60 LOCATION:D.M2 D.211 AGE OF PATIENT: 58 ADMISSION DATE: 09/13/18 REFERRING PHYSICIAN: INTERPRETING PHYSICIAN: VIJAY JOHNS MD ECHOCARDIOGRAM REPORT ECHO CHARGES 4 ECHO COMPLETE Date: 09/14/18 CLINICAL DIAGNOSIS: AR ECHOCARDIOGRAPHIC MEASUREMENTS (adult normal given) AC root (d.<3.7cm) 3.0 cm LV Septum d (<1.2 cm> 1.5 cm Valve Excursion 1.5 cm LV Septum (systole) 1.9 cm Left Atria (s.<4.0cm> 3.6 cm LVPW d(<1.2cm) 1.8 cm RV (d.<2.3cm) 3.2 cm LVPW (sytole) 2.2 cm LV diastole(<5.6CM) 4.3 cm MV E-F(>70mm/sec) cm LV systole 3.4 cm LVOT Diameter 1.7 cm MV exc.(>10mm) 1.8 cm Est.ejection fraction (50-75%) % DOPPLER: LVIT cm/sec A 77.0 cm/sec E 72.0 cm/sec LA cm/sec RVSP 34 mmHg LVOT 73 cm/sec AOP1/2T m/s Asc. Ao 121 cm/sec RVOT 58 cm/sec RA cm/sec PA 115 cm/sec AV Gradient Peak 5.82 mmHg AV Mean 3.49 mmHg AV Area 1.3 cm MV Gradient Peak 5.28 mmHg MV Mean 1.33 mmHg MV Area cm COMMENTS: Roofing Subcontractor: Ethan KIRBY Naturalization Examiner: 1 Dr. Johns TAPE# PACS Pericardial Effusion Y DATE OF SERVICE: 09/15/2018 FINDINGS: 1. Left ventricular chamber size is within normal limits. Left ventricular systolic function is mildly depressed at 40%. 2. Left atrium, right atrium, and right ventricular chamber sizes are within normal limit. 3. Valvular structures have normal structure and motion. 4. Doppler interrogation reveals mild aortic insufficiency, mild mitral regurgitation, and mild tricuspid regurgitation. No other valvular ECHOCARDIOGRAM REPORT [id number] KRISTOFER LANDON insufficiency or stenosis. 5. Small pericardial effusion is present. This is not hemodynamically significant. No evidence of left ventricular thrombus. TRANSINT:[id number] Voice Confirmation ID: [id number] DOCUMENT ID: [id number] VIJAY JOHNS MD at 0953 CC: [id number] DICTATION DATE: 09/15/18 1256 ADULT LITERACY TEACHER: 09/15/18 1707 ADM IN [facility] [address] [id number]
--- NOTE | 2018-09-17 09:53 | OP ---
PATIENT NAME: KRISTOFER LANDON MEDICAL RECORD: [id number] :60 LOCATION:D.M2 D.2118 ADMISSION DATE:09/13/18 SURGEON: VIJAY MILLER MD DATE OF OPERATION: 09/16/2018 PROCEDURES: 1. PTCA and stent, RCA. 2. Selective coronary angiography. INDICATION: Angina, coronary artery disease, recent myocardial infarction. PROCEDURE IN DETAIL: After informed consent was obtained with detailed description of risks and benefits as well as alternative therapies, the patient elected to proceed with angiogram and angioplasty. The left femoral area was prepped and draped in normal sterile fashion. The left femoral artery was cannulated via modified Seldinger technique with placement of 6-Armenian sheath. FINDINGS: The right coronary has 85% to 90% stenosis proximally. This was addressed with a 3.5 x 24 mm Cobra stent. Result was 0% residual stenosis. OVERALL IMPRESSION: Successful PTCA and stent of the RCA, going from 85% to 90% initial stenosis to 0% residual. TRANSINT:[id number] Voice Confirmation ID: [id number] DOCUMENT ID: [id number] VIJAY MILLER MD at 0953 CC: [id number] DICTATION DATE: 09/16/18 1550 INSTRUCTOR OF SPANISH: 09/16/18 1737 [place] [address]
--- NOTE | 2018-09-17 12:06 | NUR ---
FSBS 208 REGULAR 12 UNITS GIVEN SQ RT ARM
--- NOTE | 2018-09-17 12:08 | MORECARE ---
CASE MANAGEMENT DISCHARGE SUMMARY PATIENT: KRISTOFER LANDON UNIT: [id number] ADM DATE: 09/13/18 AGE: 58 : 60 SEX: M ROOM/BED: D.0544 AUTHOR: DORENE SMITH PHYSICIAN: REFERRING PHYSICIAN: VIJAY MILLER MD DATE OF SERVICE: 09/17/18 Discharge Plan Patient Name: KRISTOFER LANDON Facility: [facility]:[place] : 1960 Planned Disposition: Home with Home Health Anticipated Discharge Date: 09/17/18 Discharge Date: Expected LOS: 4 Initial Reviewer: [email or web address] Initial Review Date: 09/17/2018 Generated: 09/17/18 1:08 pm External Providers External Provider: [facility] T[facility]q Rdz Next Contact Date: 09/17/2018 Service Request Date: Service Type: Resolution: Reviewer: Comments: Coverage Notice Reviewer: [id number] Tariq Carrington Notice Issued Date-Time: 09/17/2018 9:25 Notice Type: Patient Choice Letter Notice Delivered To: Patient Relationship to Patient: Child Care Associate Teacher Name: Delivery Method: HAND - Hand Delivered Susanne Days: Prior Verbal Notification: Recipient Understood Notice: Yes Recipient Signature: Yes Med Rec Note Co-signed by Attending: Coverage Notice Comment: NO HOME HEALTH PREFERENCE Patient Name: KRISTOFER LANDON Page [phone] at 1208 All edits/amendments must be made on the electronic document DICTATION DATE: 09/17/18 1208 CHIEF SUBSTATION OPERATOR: VAMSI 09/17/18 1208 RPT#: [id number] DC DATE: STATUS: ADM IN [facility] [address] [place] [address] END OF REPORT
--- NOTE | 2018-09-17 12:18 | MORECARE ---
CASE MANAGEMENT DISCHARGE SUMMARY PATIENT: KRISTOFER LANDON UNIT: [id number] ADM DATE: 09/13/18 AGE: 58 : 60 SEX: M ROOM/BED: D.8983 AUTHOR: LUISDOC PHYSICIAN: REFERRING PHYSICIAN: VIJAY MILLER MD DATE OF SERVICE: 09/17/18 Discharge Plan Patient Name: KRISTOFER LANDON Facility: [facility]:[place] : 1960 Planned Disposition: Home with Home Health Anticipated Discharge Date: 09/17/18 Discharge Date: Expected LOS: 4 Initial Reviewer: [email or web address] Initial Review Date: 09/17/2018 Generated: 09/17/18 1:18 pm Comments DCP- Discharge Planning Updated by [email or web address]: Nick Carrington on 09/17/18 11:[address] Patient Name: KRISTOFER LANDON Admission Status: ER Accout number: [id number] Admission Date: 09-13-2018 : 1960 Admission Diagnosis:STEMI INVOLVING OTH CORONARY ARTERY OF ANTERIOR WALL Attending: ALVAREZ MILLER Current LOS: 4 Anticipated DC Date: 09-17-2018 Planned Disposition: Home with Home Health Primary Insurance: [facility] PRIVATE OPTIONS [facility] PLANNED EXTERNAL PROVIDER: [facility] [place] Discharge Planning Comments: CM MET WITH PT IN ROOM TO DISCUSS DISCHARGE PLANNING AND NEEDS. PT REPORTS LIVING AT HOME INDEPENDENTLY AND ALONE. PT HAS A CANE AND NO MEDICAL EQUIPMENT PROVIDER PREFERENCE. PT HAS NO OUTSIDE SERVICES ASSISTING IN THE HOME. CM DISCUSSED AVAILABILITY OF HOME HEALTH, REHAB SERVICES AND MEDICAL EQUIPMENT. PT WANTS HOME HEALTH TO MAKE SURE HE IS TAKING MEDICINE CORRECTLY AT HOME, NO CHOICE ON PROVIDER. PROVIDER LISTING GIVEN, PT SIGNED CHOICE FOR NO HOME HEALTH PROVIDER PREFERENCE. PT HAS NO RIDE HOME. PT DENIES HAVING MONEY FOR TRANSPORT HOME AND DENIES HAVING ANY EMERGENCY CONTACTS TO CALL. PT INSISTS THAT THE DOCTOR IS GETTING HIM A RIDE HOME. AFTER LONG DISCUSSION OF PERSONAL SUPPORT SYSTEM, PT HAS TWO SISTERS IN [place], [place]. KAROLINA INFANTE AND ANKUR FRENCH. PT'S PHONE IS AND HAS NO IMAGING CENTER MANAGER FOR CHARGE THE PHONE. CM WAS ABLE TO LOCATE PHONE NUMBER FOR JESICA FRENCH, SISTER, ; JESICA WILL COUNTER TACKER PT AT ABOUT 5PM TODAY. CM CALLED [facility], [place] OFFICE, , SPOKE TO JIMENEZ WHO ACCEPTED REFERRAL FOR HOME HEALTH.. CM FAXED REFERRAL AND DISCHARGE INFORMATION TO [facility] AT [phone]. PT NOTIFIED. MAJOR SALES ASSOCIATE NURSE NOTIFIED. Sales Promotion Manager: Nick Carrington Coverage Notice Reviewer: [id number] - Nick Carrington Notice Issued Date-Time: 09/17/2018 9:25 Notice Type: Patient Choice Letter Notice Delivered To: Patient Relationship to Patient: Director Business Systems Name: Delivery Method: HAND - Hand Delivered Susanne Days: Prior Verbal Notification: Recipient Understood Notice: Yes Recipient Signature: Yes Med Rec Note Co-signed by Attending: Coverage Notice Comment: NO HOME HEALTH PREFERENCE Last DP export: 09/17/18 11:08 am Patient Name: KRISTOFER LANDON Page [phone] at 1218 All edits/amendments must be made on the electronic document DICTATION DATE: 09/17/18 1218 STUNT WOMAN: VAMSI 09/17/18 1218 RPT#: [id number] DC DATE: STATUS: ADM IN [facility] [address] [place] [address] END OF REPORT
--- NOTE | 2018-09-17 12:52 | MORECARE ---
CASE MANAGEMENT DISCHARGE SUMMARY PATIENT: KRISTOFER LANDON UNIT: [id number] ADM DATE: 09/13/18 AGE: 58 : 60 SEX: M ROOM/BED: D.2042 AUTHOR: LUISDOC PHYSICIAN: REFERRING PHYSICIAN: VIJAY MILLER MD DATE OF SERVICE: 09/17/18 Discharge Plan Patient Name: KRISTOFER LANDON Facility: [facility]:[place] : 1960 Planned Disposition: Home with Home Health Anticipated Discharge Date: 09/17/18 Discharge Date: Expected LOS: 4 Initial Reviewer: [email or web address] Initial Review Date: 09/17/2018 Generated: 09/17/18 1:52 pm Comments DCP- Discharge Planning Updated by [email or web address]: Nick Carrington on 09/17/18 11:[address] Patient Name: KRISTOFER LANDON Admission Status: ER Accout number: [id number] Admission Date: 09-13-2018 : 1960 Admission Diagnosis:STEMI INVOLVING OTH CORONARY ARTERY OF ANTERIOR WALL Attending: ALVAREZ MILLER Current LOS: 4 Anticipated DC Date: 09-17-2018 Planned Disposition: Home with Home Health Primary Insurance: [facility] PRIVATE OPTIONS [facility] PLANNED EXTERNAL PROVIDER: [facility] [place] Discharge Planning Comments: CM MET WITH PT IN ROOM TO DISCUSS DISCHARGE PLANNING AND NEEDS. PT REPORTS LIVING AT HOME INDEPENDENTLY AND ALONE. PT HAS A CANE AND NO MEDICAL EQUIPMENT PROVIDER PREFERENCE. PT HAS NO OUTSIDE SERVICES ASSISTING IN THE HOME. CM DISCUSSED AVAILABILITY OF HOME HEALTH, REHAB SERVICES AND MEDICAL EQUIPMENT. PT WANTS HOME HEALTH TO MAKE SURE HE IS TAKING MEDICINE CORRECTLY AT HOME, NO CHOICE ON PROVIDER. PROVIDER LISTING GIVEN, PT SIGNED CHOICE FOR NO HOME HEALTH PROVIDER PREFERENCE. PT HAS NO RIDE HOME. PT DENIES HAVING MONEY FOR TRANSPORT HOME AND DENIES HAVING ANY EMERGENCY CONTACTS TO CALL. PT INSISTS THAT THE DOCTOR IS GETTING HIM A RIDE HOME. AFTER LONG DISCUSSION OF PERSONAL SUPPORT SYSTEM, PT HAS TWO SISTERS IN [place], [place]. KAROLINA INFANTE AND ANKUR FRENCH. PT'S PHONE IS AND HAS NO FRONT OF HOUSE MANAGER FOR CHARGE THE PHONE. CM WAS ABLE TO LOCATE PHONE NUMBER FOR JESICA FRENCH, SISTER, ; JESICA WILL ADVERTISING STRATEGIST PT AT ABOUT 5PM TODAY. CM CALLED [facility] [place] OFFICE, , SPOKE TO JIMENEZ WHO ACCEPTED REFERRAL FOR HOME HEALTH.. CM FAXED REFERRAL AND DISCHARGE INFORMATION TO [facility] AT [phone]. PT NOTIFIED. HANDLE BENDER NURSE NOTIFIED. No Bake Molder: Nick Carrington Coverage Notice Reviewer: [id number] - Nick Carrington Notice Issued Date-Time: 09/17/2018 9:25 Notice Type: Patient Choice Letter Notice Delivered To: Patient Relationship to Patient: Frame Coverer Name: Delivery Method: HAND - Hand Delivered Susanne Days: Prior Verbal Notification: Recipient Understood Notice: Yes Recipient Signature: Yes Med Rec Note Co-signed by Attending: Coverage Notice Comment: NO HOME HEALTH PREFERENCE Last DP export: 09/17/18 11:18 am Patient Name: KRISTOFER LANDON Page [phone] at 1252 All edits/amendments must be made on the electronic document DICTATION DATE: 09/17/18 1251 FINANCIAL SERVICES REPRESENTATIVE: VAMSI 09/17/18 1251 RPT#: [id number] DC DATE: STATUS: ADM IN [facility] [address] [place] [address] END OF REPORT
[2018-09-17 13:07] VITALS: BP 142/86
--- NOTE | 2018-09-17 13:07 | MORECARE ---
CASE MANAGEMENT DISCHARGE SUMMARY PATIENT: KRISTOFER LANDON UNIT: [id number] ADM DATE: 09/13/18 AGE: 58 : 60 SEX: M ROOM/BED: D.9212 AUTHOR: LUISDOC PHYSICIAN: REFERRING PHYSICIAN: VIJAY MILLER MD DATE OF SERVICE: 09/17/18 Discharge Plan Patient Name: KRISTOFER LANDON Facility: [facility]:[place] : 1960 Planned Disposition: Home with Home Health Anticipated Discharge Date: 09/17/18 Discharge Date: Expected LOS: 4 Initial Reviewer: [id number] Initial Review Date: 09/17/2018 Generated: 09/17/18 2:06 pm Comments DCP- Discharge Planning Updated by [id number]: Nick Carrington on 09/17/18 11:[address] Patient Name: KRISTOFER LANDON Admission Status: ER Accout number: [id number] Admission Date: 09-13-2018 : 1960 Admission Diagnosis:STEMI INVOLVING OTH CORONARY ARTERY OF ANTERIOR WALL Attending: ALVAREZ MILLER Current LOS: 4 Anticipated DC Date: 09-17-2018 Planned Disposition: Home with Home Health Primary Insurance: [facility] PRIVATE OPTIONS [facility] PLANNED EXTERNAL PROVIDER: [facility] [place] Discharge Planning Comments: CM MET WITH PT IN ROOM TO DISCUSS DISCHARGE PLANNING AND NEEDS. PT REPORTS LIVING AT HOME INDEPENDENTLY AND ALONE. PT HAS A CANE AND NO MEDICAL EQUIPMENT PROVIDER PREFERENCE. PT HAS NO OUTSIDE SERVICES ASSISTING IN THE HOME. CM DISCUSSED AVAILABILITY OF HOME HEALTH, REHAB SERVICES AND MEDICAL EQUIPMENT. PT WANTS HOME HEALTH TO MAKE SURE HE IS TAKING MEDICINE CORRECTLY AT HOME, NO CHOICE ON PROVIDER. PROVIDER LISTING GIVEN, PT SIGNED CHOICE FOR NO HOME HEALTH PROVIDER PREFERENCE. PT HAS NO RIDE HOME. PT DENIES HAVING MONEY FOR TRANSPORT HOME AND DENIES HAVING ANY EMERGENCY CONTACTS TO CALL. PT INSISTS THAT THE DOCTOR IS GETTING HIM A RIDE HOME. AFTER LONG DISCUSSION OF PERSONAL SUPPORT SYSTEM, PT HAS TWO SISTERS IN [place], [place]. KAROLINA INFANTE AND ANKUR FRENCH. PT'S PHONE IS AND HAS NO PHOTO JOURNALIST FOR CHARGE THE PHONE. CM WAS ABLE TO LOCATE PHONE NUMBER FOR JESICA FRENCH, SISTER, ; JESICA WILL CHICKEN PICKER PT AT ABOUT 5PM TODAY. CM CALLED [facility], [place] OFFICE, , SPOKE TO JIMENEZ WHO ACCEPTED REFERRAL FOR HOME HEALTH.. CM FAXED REFERRAL AND DISCHARGE INFORMATION TO [facility] AT [phone]. PT NOTIFIED. PHOTOGRAPHER AERIAL NURSE NOTIFIED. Screw Eye Assembler: Nick Carrington DCPIA - Discharge Planning Initial Assessment Updated by [id number]: Nick Carrington on 09/17/18 1:03 pm * Is the patient Alert and Oriented? Yes * How many steps to enter\exit or inside your home? * PCP DR. HENNING * Pharmacy [facility] IN [place] * Preadmission Environment Home Alone * ADLs Independent * Equipment Cane * Other Equipment NO MEDICAL EQUIPMENT PROVIDER PREFERENCE * List name and contact numbers for known caregivers / representatives who currently or will assist patient after discharge: JESICA FRENCH, SISTER, * Verbal permission to speak to the caregivers and representatives has been obtained from the patient. Yes * Community resources currently utilized None * Please name any agencies selected above. NONE * Additional services required to return to the preadmission environment? No * Can the patient safely return to the preadmission environment? Yes * Has this patient been hospitalized within the prior 30 days at any hospital? No Coverage Notice Reviewer: [id number] - Nick Carrington Notice Issued Date-Time: 09/17/2018 9:25 Notice Type: Patient Choice Letter Notice Delivered To: Patient Relationship to Patient: Machine Bobbin Winder Name: Delivery Method: HAND - Hand Delivered Susanne Days: Prior Verbal Notification: Recipient Understood Notice: Yes Recipient Signature: Yes Med Rec Note Co-signed by Attending: Coverage Notice Comment: NO HOME HEALTH PREFERENCE Last DP export: 09/17/18 11:52 am Patient Name: KRISTOFER LANDON Page [phone] at 1307 All edits/amendments must be made on the electronic document DICTATION DATE: 09/17/18 1306 INTENSIVE CARE AMBULANCE PARAMEDIC: VAMSI 09/17/18 1306 RPT#: [id number] DC DATE: STATUS: ADM IN [facility] [address] [place] [address] END OF REPORT
--- NOTE | 2018-09-17 19:17 | NUR ---
PATIENT SIGNED DISCHARGE PAPERWORK AND IV HAS BEEN REMOVED. CONGRESSIONAL ASSISTANT RETURNED TO MONITOR.
== END 2018-09-17 19:19 | disposition home health service (06) | DRG 249 ==
LOC: D.ER 19:50 → D.M2 20:33 → D.CVICU 20:33 → D.M2 09-14 14:05
PROVIDERS: Family Medicine; Internal Medicine Nephrology; ADMIT Internal Medicine Interventional Cardiology; ATTEND Internal Medicine Interventional Cardiology
PROC: 4A023N7 Measurement of Cardiac Sampling and Pressure, Left Heart, Percutaneous Approach (ICD-10-PCS; 2018-09-13)
PROC: B2111ZZ Fluoroscopy of Multiple Coronary Arteries using Low Osmolar Contrast (ICD-10-PCS; 2018-09-13)
PROC: B2151ZZ Fluoroscopy of Left Heart using Low Osmolar Contrast (ICD-10-PCS; 2018-09-13)
PROC: 02703DZ Dilation of Coronary Artery, One Artery with Intraluminal Device, Percutaneous Approach (ICD-10-PCS; principal; 2018-09-13 19:57)
PROC: 02703DZ Dilation of Coronary Artery, One Artery with Intraluminal Device, Percutaneous Approach (ICD-10-PCS; 2018-09-16)
DX: I21.09 ST elevation (STEMI) myocardial infarction involving other coronary artery of anterior wall (principal); N17.9 Acute kidney failure, unspecified; F17.213 Nicotine dependence, cigarettes, with withdrawal; I50.9 Heart failure, unspecified; E11.9 Type 2 diabetes mellitus without complications; I25.119 Atherosclerotic heart disease of native coronary artery with unspecified angina pectoris; J44.9 Chronic obstructive pulmonary disease, unspecified; E78.5 Hyperlipidemia, unspecified; I11.0 Hypertensive heart disease with heart failure